=== PATIENT | female | born 1955 | race Caucasian/White ===

== ENCOUNTER 2021-04-21 19:37 | Inpatient (IN) | payer OTHER ==
[~2021-04-21] VITALS: Ht 162.6 cm; Wt 78.4 kg
[2021-04-21] MEDS ORDERED: SODIUM CHLORIDE FLUSH 10ML SYR IVF ONE (20:00)
[2021-04-21] MEDS ORDERED: DEXAMETHASONE 4 MG/ML, 1ML IVPush ONE (20:00)
[2021-04-21] MEDS ORDERED: DEXAMETHASONE 4 MG/ML, 1ML ONE (20:15)
--- NOTE | 2021-04-21 20:22 | NUR ---
BIB [facility] W/ CO OF HYPOXIA. PT DX ON FRIDAY W/ COVID, REPORTS SHE HAD PULSE OX THAT WAS READING LOW 70'S. KILN PLACER, 20 R WRIST STARTED, BREATHING TX GIVEN AND OXYGEN IMPROVED. REPORT RECEIVED FROM DRIVER OPERATOR, [facility] DID NOT GIVE REPORT. PT IN BED, PLACED ON MONITORS (BP, O2, CARDIAC). CXR COMPELTED, LAB BEDSIDE NOW.
--- NOTE | 2021-04-21 20:26 | NUR ---
MEDICATED PER MAR
[2021-04-21] MEDS ORDERED: PLEASE ENTER ALLERGIES MC SCH (20:30)
[2021-04-21] MEDS ORDERED: PLEASE ENTER HEIGHT AND WEIGHT MC SCH (20:30)
[2021-04-21 20:44] LABS: BASOPHILS % (AUTO) 1 % (0-1); EOSINOPHILS % (AUTO) 0 % (1-7); LYMPHOCYTES % (AUTO) 14 % (22-44); MEAN CORPUSCULAR HEMOGLOBIN 29.1 pg (27.0-34.8); MEAN CORPUSCULAR HGB CONC 33.9 g/dL (32.4-35.8); MEAN PLATELET VOLUME 9.2 fL (7.4-10.4); MONOCYTES % (AUTO) 7 % (2-9); NEUTROPHILS % (AUTO) 78 % (42-75); PLATELET COUNT 198 x10^3/uL (130-400); RED BLOOD COUNT 5.04 x10^6/uL (3.82-5.3); RED CELL DISTRIBUTION WIDTH 13.6 % (9.6-15.2)
[2021-04-21 20:56] LABS: ALANINE AMINOTRANSFERASE 79 U/L (12-78); ALBUMIN 2.8 g/dL (3.4-5.0); ANION GAP 7 mmol/L (5-15); CALCIUM 8.9 mg/dL (8.5-10.1); CHLORIDE 100 mmol/L (98-107); CREATININE 0.73 mg/dL (0.55-1.02)
[2021-04-21 20:58] LABS: ALKALINE PHOSPHATASE 50 U/L (45-117); BILIRUBIN,TOTAL 0.6 mg/dL (0.2-1.0); TOTAL PROTEIN 7.6 g/dL (6.4-8.2)
[2021-04-21] MEDS ORDERED: CEFTRIAXONE 1,000 MG in DEXTROSE 5% 50 ML IVPB ONE (21:00)
[2021-04-21] MEDS ORDERED: AZITHROMYCIN 500 MG in SODIUM CHLORIDE 0.9% 250 ML IVPB ONE (21:00)
--- NOTE | 2021-04-21 21:30 | NUR ---
pt resting in [facility], denies any need. updated on poc, medicated per oct. call light w/in reach. [place]
--- NOTE | 2021-04-21 22:07 | NUR ---
Pt reports she is doing ok, and denies any needs. respirations in 40's, and is taking short breaths. encouraged full breaths and possibility of laying prone. abx given per octUrszula putnam. call light w/in reach.
[2021-04-21] MEDS ORDERED: ONDANSETRON 2MG/ML, 2ML IVPush PRN (22:30)
[2021-04-21] MEDS ORDERED: ENOXAPARIN 40 MG/0.4 ML SQ SCH (22:30)
[2021-04-21] MEDS ORDERED: POLYETHYLENE GLYCOL 17 GM PACKET PO PRN (22:30)
[2021-04-21] MEDS ORDERED: LABETALOL 5MG/ML, 20ML IVPush PRN (22:30)
[2021-04-21] MEDS ORDERED: PHARMACY MAY ADJ FOR RENAL FX MC PRN (22:30)
[2021-04-21] MEDS ORDERED: ENOXAPARIN 40 MG/0.4 ML ONE (23:07)
[2021-04-21] MEDS ORDERED: FAMOTIDINE 20 MG TABLET ONE (23:07)
[2021-04-21] MEDS ORDERED: ASCORBIC ACID 500 MG TABLET ONE (23:07)
[2021-04-21] MEDS ORDERED: MELATONIN 5 MG TABLET ONE (23:08)
[2021-04-21] MEDS: MELATONIN 5 MG TABLET PO SCH (23:13)
[2021-04-21] MEDS: ASCORBIC ACID 500 MG TABLET PO SCH (23:13)
[2021-04-21] MEDS: FAMOTIDINE 20 MG TABLET PO SCH (23:14)
--- NOTE | 2021-04-21 23:14 | NUR ---
pt medicated per oct. denies needs, nadn. call light w/in reach
--- NOTE | 2021-04-22 00:09 | NUR ---
Pt resting on gurney, laying on her side. NADN, call light w/in reach
--- NOTE | 2021-04-22 00:13 | NUR ---
Spoke with RT d/t an optiflow order being put in by ED doctor. Let her know that she can be tachypneic in 40's and that I bumped her up to 5L but has always been in 90's. [facility] has seen pt and has not put an order for optiflow. RT will assess pt when available.
--- NOTE | 2021-04-22 00:46 | NUR ---
RT assessed pt and at this time is not placing pt on optiflow which I agree with.
--- NOTE | 2021-04-22 01:12 | NUR ---
SBAR give to Barb, answered questions. Pt is ready for transfer
[2021-04-22] MEDS ORDERED: CHOLESTROL MED (01:43)
[2021-04-22] MEDS ORDERED: blood pressure med (01:43)
[2021-04-22 01:44] VITALS: BP 114/70
[2021-04-22] MEDS ORDERED: ENOXAPARIN 30 MG/0.3 ML SQ SCH (02:00)
[2021-04-22 03:52] VITALS: BP 99/60
[2021-04-22 06:57] LABS: BASOPHILS % (AUTO) 0 % (0-1); EOSINOPHILS % (AUTO) 0 % (1-7); LYMPHOCYTES % (AUTO) 16 % (22-44); MEAN CORPUSCULAR HEMOGLOBIN 29.3 pg (27.0-34.8); MEAN PLATELET VOLUME 9.2 fL (7.4-10.4); MONOCYTES % (AUTO) 8 % (2-9); NEUTROPHILS % (AUTO) 76 % (42-75); PLATELET COUNT 181 x10^3/uL (130-400); RED BLOOD COUNT 4.55 x10^6/uL (3.82-5.3); RED CELL DISTRIBUTION WIDTH 13.4 % (9.6-15.2)
[2021-04-22 07:04] LABS: ANION GAP 5 mmol/L (5-15); CHLORIDE 104 mmol/L (98-107); CREATININE 0.62 mg/dL (0.55-1.02)
[2021-04-22 08:05] VITALS: BP 104/95
[2021-04-22] MEDS: DEXAMETHASONE 4 MG/ML, 1ML IVPush SCH (08:07)
[2021-04-22] MEDS: ZINC SULFATE 220 MG CAPSULE PO SCH (08:07)
[2021-04-22] MEDS: ASCORBIC ACID 500 MG TABLET PO SCH ×2 (08:07→21:23)
[2021-04-22] MEDS: FAMOTIDINE 20 MG TABLET PO SCH (08:07)
[2021-04-22] MEDS: FUROSEMIDE 40 MG TABLET PO SCH (10:49)
[2021-04-22 13:01] VITALS: BP 108/83
[2021-04-22 13:30] VITALS: BP 166/76
[2021-04-22] MEDS ORDERED: FAMOTIDINE 20 MG TABLET PO SCH (21:00)
[2021-04-22 21:13] VITALS: BP 99/62
[2021-04-22] MEDS: ENOXAPARIN 40 MG/0.4 ML SQ SCH (21:23)
[2021-04-22] MEDS: MELATONIN 5 MG TABLET PO SCH (21:23)
[2021-04-22] MEDS: GUAIFENESIN/DM 200-20MG, 10ML UDC PO PRN (22:59)
[2021-04-22] MEDS: BENZONATATE 100 MG CAPSULE PO SCH (23:00)
[2021-04-22] MEDS ORDERED: GUAIFENESIN/DM 200-20MG, 10ML UDC PO PRN (23:00)
[2021-04-23 01:08] VITALS: BP 104/60
[2021-04-23 06:00] VITALS: BP 113/74
[2021-04-23 06:07] LABS: CHLORIDE 107 mmol/L (98-107)
[2021-04-23 06:35] LABS: ALANINE AMINOTRANSFERASE 87 U/L (12-78); ALBUMIN 2.1 g/dL (3.4-5.0); ALKALINE PHOSPHATASE 40 U/L (45-117); ANION GAP 6 mmol/L (5-15); BILIRUBIN,TOTAL 0.4 mg/dL (0.2-1.0); CALCIUM 8.8 mg/dL (8.5-10.1); CREATININE 0.55 mg/dL (0.55-1.02); TOTAL PROTEIN 6.3 g/dL (6.4-8.2)
[2021-04-23] MEDS ORDERED: CEFTRIAXONE 1,000 MG IM SCH (10:00)
[2021-04-23] MEDS ORDERED: REMDESIVIR 200 MG in SODIUM CHLORIDE 0.9% 100 ML IVPB ONE ×2 (10:00→19:15)
[2021-04-23] MEDS: ASCORBIC ACID 500 MG TABLET PO SCH ×2 (10:27→20:35)
[2021-04-23] MEDS: DEXAMETHASONE 4 MG/ML, 1ML IVPush SCH (10:27)
[2021-04-23] MEDS: BENZONATATE 100 MG CAPSULE PO SCH ×3 (10:28→20:34)
[2021-04-23] MEDS: AZITHROMYCIN 500 MG TABLET PO SCH (10:28)
[2021-04-23] MEDS: ZINC SULFATE 220 MG CAPSULE PO SCH (10:28)
[2021-04-23] MEDS: FUROSEMIDE 40 MG TABLET PO SCH (10:29)
[2021-04-23 14:20] VITALS: BP 121/65
[2021-04-23] MEDS: CEFTRIAXONE 1,000 MG in DEXTROSE 5% 50 ML IVPB SCH (18:19)
[2021-04-23] MEDS: GUAIFENESIN/DM 200-20MG, 10ML UDC PO PRN (19:26)
[2021-04-23 19:42] VITALS: BP 130/62
[2021-04-23] MEDS: ENOXAPARIN 40 MG/0.4 ML SQ SCH (20:34)
[2021-04-23] MEDS: MELATONIN 5 MG TABLET PO SCH (20:35)
[2021-04-23] MEDS: FAMOTIDINE 20 MG TABLET PO SCH (20:35)
[2021-04-24 02:33] VITALS: BP 95/55
[2021-04-24 07:07] LABS: BASOPHILS % (AUTO) 0 % (0-1); EOSINOPHILS % (AUTO) 0 % (1-7); LYMPHOCYTES % (AUTO) 11 % (22-44); MEAN CORPUSCULAR HEMOGLOBIN 28.4 pg (27.0-34.8); MEAN CORPUSCULAR HGB CONC 33.3 g/dL (32.4-35.8); MEAN PLATELET VOLUME 9.2 fL (7.4-10.4); MONOCYTES % (AUTO) 9 % (2-9); NEUTROPHILS % (AUTO) 81 % (42-75); PLATELET COUNT 290 x10^3/uL (130-400); RED BLOOD COUNT 4.43 x10^6/uL (3.82-5.3); RED CELL DISTRIBUTION WIDTH 13.2 % (9.6-15.2)
[2021-04-24 07:23] LABS: CHLORIDE 106 mmol/L (98-107)
[2021-04-24 07:30] LABS: ALANINE AMINOTRANSFERASE 82 U/L (12-78); ALBUMIN 2.4 g/dL (3.4-5.0); ALKALINE PHOSPHATASE 43 U/L (45-117); ANION GAP 7 mmol/L (5-15); BILIRUBIN,TOTAL 0.5 mg/dL (0.2-1.0); CALCIUM 9.2 mg/dL (8.5-10.1); CREATININE 0.49 mg/dL (0.55-1.02); TOTAL PROTEIN 6.4 g/dL (6.4-8.2)
[2021-04-24 08:00] VITALS: BP 111/74
[2021-04-24] MEDS: FUROSEMIDE 40 MG TABLET PO SCH (10:27)
[2021-04-24] MEDS: ZINC SULFATE 220 MG CAPSULE PO SCH (10:27)
[2021-04-24] MEDS: DEXAMETHASONE 4 MG/ML, 1ML IVPush SCH (10:27)
[2021-04-24] MEDS: BENZONATATE 100 MG CAPSULE PO SCH ×3 (10:27→20:23)
[2021-04-24] MEDS: AZITHROMYCIN 500 MG TABLET PO SCH (10:27)
[2021-04-24] MEDS: ASCORBIC ACID 500 MG TABLET PO SCH ×2 (10:27→20:23)
[2021-04-24] MEDS: FAMOTIDINE 20 MG TABLET PO SCH ×2 (10:28→20:23)
[2021-04-24 13:30] VITALS: BP 124/72
[2021-04-24] MEDS: CEFTRIAXONE 1,000 MG in DEXTROSE 5% 50 ML IVPB SCH (16:20)
[2021-04-24 20:03] VITALS: BP 111/71
[2021-04-24] MEDS: MELATONIN 5 MG TABLET PO SCH (20:23)
[2021-04-24] MEDS: ENOXAPARIN 40 MG/0.4 ML SQ SCH (20:24)
[2021-04-24] MEDS: REMDESIVIR 100 MG in SODIUM CHLORIDE 0.9% 100 ML IVPB SCH (20:46)
[2021-04-24] MEDS ORDERED: ACETAMINOPHEN 325 MG TABLET ONE (21:02)
[2021-04-24 21:50] VITALS: BP 126/85
[2021-04-24] MEDS: ACETAMINOPHEN 325 MG TABLET PO PRN (22:50)
[2021-04-25 00:33] VITALS: BP 105/66
[2021-04-25 06:14] LABS: BASOPHILS % (AUTO) 0 % (0-1); EOSINOPHILS % (AUTO) 0 % (1-7); LYMPHOCYTES % (AUTO) 14 % (22-44); MEAN CORPUSCULAR HEMOGLOBIN 28.7 pg (27.0-34.8); MEAN CORPUSCULAR HGB CONC 33.4 g/dL (32.4-35.8); MEAN PLATELET VOLUME 8.9 fL (7.4-10.4); MONOCYTES % (AUTO) 7 % (2-9); NEUTROPHILS % (AUTO) 79 % (42-75); PLATELET COUNT 339 x10^3/uL (130-400); RED BLOOD COUNT 4.39 x10^6/uL (3.82-5.3); RED CELL DISTRIBUTION WIDTH 13.3 % (9.6-15.2)
[2021-04-25 06:24] LABS: ALBUMIN 2.6 g/dL (3.4-5.0); ANION GAP 10 mmol/L (5-15); CALCIUM 9.2 mg/dL (8.5-10.1); CHLORIDE 106 mmol/L (98-107)
[2021-04-25 06:29] LABS: ALANINE AMINOTRANSFERASE 77 U/L (12-78); ALKALINE PHOSPHATASE 46 U/L (45-117); BILIRUBIN,TOTAL 0.5 mg/dL (0.2-1.0); CREATININE 0.54 mg/dL (0.55-1.02); TOTAL PROTEIN 6.6 g/dL (6.4-8.2)
[2021-04-25 10:00] VITALS: BP 107/63
[2021-04-25 10:08] VITALS: BP 107/63
[2021-04-25] MEDS: ASCORBIC ACID 500 MG TABLET PO SCH ×2 (10:34→20:31)
[2021-04-25] MEDS: FAMOTIDINE 20 MG TABLET PO SCH ×2 (10:34→20:28)
[2021-04-25] MEDS: AZITHROMYCIN 500 MG TABLET PO SCH (10:34)
[2021-04-25] MEDS: ZINC SULFATE 220 MG CAPSULE PO SCH (10:34)
[2021-04-25] MEDS: BENZONATATE 100 MG CAPSULE PO SCH ×3 (10:34→20:28)
[2021-04-25] MEDS: FUROSEMIDE 40 MG TABLET PO SCH (10:34)
[2021-04-25] MEDS: DEXAMETHASONE 4 MG/ML, 1ML IVPush SCH (10:35)
[2021-04-25 12:25] VITALS: BP 131/77
[2021-04-25] MEDS: CEFTRIAXONE 1,000 MG in DEXTROSE 5% 50 ML IVPB SCH (16:14)
[2021-04-25] MEDS: GUAIFENESIN/DM 200-20MG, 10ML UDC PO PRN (16:27)
[2021-04-25] MEDS: ACETAMINOPHEN 325 MG TABLET PO PRN (16:27)
[2021-04-25 20:20] VITALS: BP 124/76
[2021-04-25] MEDS: MELATONIN 5 MG TABLET PO SCH (20:28)
[2021-04-25] MEDS: ENOXAPARIN 40 MG/0.4 ML SQ SCH (20:32)
[2021-04-25] MEDS: REMDESIVIR 100 MG in SODIUM CHLORIDE 0.9% 100 ML IVPB SCH (20:50)
[2021-04-26 02:04] VITALS: BP 120/80
[2021-04-26 06:47] LABS: ALANINE AMINOTRANSFERASE 63 U/L (12-78); ANION GAP 6 mmol/L (5-15); CALCIUM 8.6 mg/dL (8.5-10.1); CHLORIDE 106 mmol/L (98-107)
[2021-04-26 06:51] LABS: ALBUMIN 2.2 g/dL (3.4-5.0); ALKALINE PHOSPHATASE 43 U/L (45-117); BILIRUBIN,TOTAL 0.4 mg/dL (0.2-1.0); CREATININE 0.56 mg/dL (0.55-1.02); TOTAL PROTEIN 6.3 g/dL (6.4-8.2)
[2021-04-26 07:10] LABS: BASOPHILS % (AUTO) 0 % (0-1); EOSINOPHILS % (AUTO) 0 % (1-7); LYMPHOCYTES % (AUTO) 12 % (22-44); MEAN CORPUSCULAR HEMOGLOBIN 28.8 pg (27.0-34.8); MEAN CORPUSCULAR HGB CONC 33.6 g/dL (32.4-35.8); MEAN PLATELET VOLUME 8.9 fL (7.4-10.4); MONOCYTES % (AUTO) 7 % (2-9); NEUTROPHILS % (AUTO) 81 % (42-75); PLATELET COUNT 357 x10^3/uL (130-400); RED BLOOD COUNT 4.33 x10^6/uL (3.82-5.3); RED CELL DISTRIBUTION WIDTH 13.4 % (9.6-15.2)
[2021-04-26] MEDS: FAMOTIDINE 20 MG TABLET PO SCH ×2 (08:43→20:15)
[2021-04-26] MEDS: ASCORBIC ACID 500 MG TABLET PO SCH ×2 (08:43→20:15)
[2021-04-26] MEDS: BENZONATATE 100 MG CAPSULE PO SCH ×3 (08:43→20:15)
[2021-04-26] MEDS: ZINC SULFATE 220 MG CAPSULE PO SCH (08:43)
[2021-04-26] MEDS: AZITHROMYCIN 500 MG TABLET PO SCH (08:44)
[2021-04-26] MEDS: FUROSEMIDE 40 MG TABLET PO SCH (08:44)
[2021-04-26] MEDS: DEXAMETHASONE 4 MG/ML, 1ML IVPush SCH (08:44)
[2021-04-26 08:52] VITALS: BP 111/72
[2021-04-26] MEDS: FLUTICASONE/VILANTEROL 100-25MCG/INH INH SCH (12:01)
[2021-04-26 13:57] VITALS: BP 117/64
[2021-04-26] MEDS: CEFTRIAXONE 1,000 MG in DEXTROSE 5% 50 ML IVPB SCH (14:05)
[2021-04-26] MEDS: ACETAMINOPHEN 325 MG TABLET PO PRN (15:29)
[2021-04-26 19:51] VITALS: BP 118/73
[2021-04-26] MEDS: ENOXAPARIN 40 MG/0.4 ML SQ SCH (20:15)
[2021-04-26] MEDS: MELATONIN 5 MG TABLET PO SCH (20:15)
[2021-04-26] MEDS: REMDESIVIR 100 MG in SODIUM CHLORIDE 0.9% 100 ML IVPB SCH (21:23)
[2021-04-27 01:06] VITALS: BP 124/72
[2021-04-27 07:10] LABS: ALANINE AMINOTRANSFERASE 60 U/L (12-78); ALBUMIN 2.6 g/dL (3.4-5.0); ANION GAP 4 mmol/L (5-15); CALCIUM 8.8 mg/dL (8.5-10.1); CHLORIDE 101 mmol/L (98-107); CREATININE 0.62 mg/dL (0.55-1.02)
[2021-04-27 07:13] LABS: ALKALINE PHOSPHATASE 48 U/L (45-117); BILIRUBIN,TOTAL 0.6 mg/dL (0.2-1.0); TOTAL PROTEIN 6.9 g/dL (6.4-8.2)
[2021-04-27 07:32] VITALS: BP 112/68
[2021-04-27] MEDS: FLUTICASONE/VILANTEROL 100-25MCG/INH INH SCH (09:13)
[2021-04-27] MEDS: FUROSEMIDE 40 MG TABLET PO SCH (09:14)
[2021-04-27] MEDS: ZINC SULFATE 220 MG CAPSULE PO SCH (09:14)
[2021-04-27] MEDS: FAMOTIDINE 20 MG TABLET PO SCH ×2 (09:14→22:21)
[2021-04-27] MEDS: ASCORBIC ACID 500 MG TABLET PO SCH ×2 (09:14→22:20)
[2021-04-27] MEDS: DEXAMETHASONE 4 MG/ML, 1ML IVPush SCH (09:14)
[2021-04-27] MEDS: AZITHROMYCIN 500 MG TABLET PO SCH (09:14)
[2021-04-27] MEDS: BENZONATATE 100 MG CAPSULE PO SCH ×3 (09:14→22:20)
[2021-04-27] MEDS: ACETAMINOPHEN 325 MG TABLET PO PRN ×3 (09:29→22:20)
[2021-04-27 12:32] VITALS: BP 121/70
[2021-04-27] MEDS: CEFTRIAXONE 1,000 MG in DEXTROSE 5% 50 ML IVPB SCH (15:20)
[2021-04-27 15:28] VITALS: BP 122/75
[2021-04-27 17:42] VITALS: BP 125/76
[2021-04-27 20:10] VITALS: BP 124/70
[2021-04-27] MEDS: MELATONIN 5 MG TABLET PO SCH (22:21)
[2021-04-27] MEDS: REMDESIVIR 100 MG in SODIUM CHLORIDE 0.9% 100 ML IVPB SCH (22:21)
[2021-04-27] MEDS: ENOXAPARIN 40 MG/0.4 ML SQ SCH (22:21)
[2021-04-28 01:12] VITALS: BP 113/69
[2021-04-28 07:27] LABS: ANION GAP 4 mmol/L (5-15); CALCIUM 8.9 mg/dL (8.5-10.1); CHLORIDE 104 mmol/L (98-107)
[2021-04-28 07:29] LABS: CREATININE 0.49 mg/dL (0.55-1.02)
[2021-04-28 10:05] VITALS: BP 104/66
[2021-04-28] MEDS: FLUTICASONE/VILANTEROL 100-25MCG/INH INH SCH (10:09)
[2021-04-28] MEDS: GUAIFENESIN/DM 200-20MG, 10ML UDC PO PRN (10:29)
[2021-04-28] MEDS: FAMOTIDINE 20 MG TABLET PO SCH ×2 (10:30→21:38)
[2021-04-28] MEDS: ZINC SULFATE 220 MG CAPSULE PO SCH (10:30)
[2021-04-28] MEDS: ACETAMINOPHEN 325 MG TABLET PO PRN ×3 (10:30→21:38)
[2021-04-28] MEDS: ASCORBIC ACID 500 MG TABLET PO SCH ×2 (10:30→21:38)
[2021-04-28] MEDS: DEXAMETHASONE 4 MG/ML, 1ML IVPush SCH (10:30)
[2021-04-28] MEDS: FUROSEMIDE 40 MG TABLET PO SCH (10:30)
[2021-04-28] MEDS: BENZONATATE 100 MG CAPSULE PO SCH ×3 (10:30→21:38)
[2021-04-28] MEDS: AZITHROMYCIN 500 MG TABLET PO SCH (10:30)
[2021-04-28 14:59] VITALS: BP 119/81
[2021-04-28] MEDS: CEFTRIAXONE 1,000 MG in DEXTROSE 5% 50 ML IVPB SCH (16:44)
[2021-04-28] MEDS: MELATONIN 5 MG TABLET PO SCH (21:38)
[2021-04-28] MEDS: THIAMINE 100MG TABLET PO SCH (21:38)
[2021-04-28 21:39] VITALS: BP 128/66
[2021-04-28] MEDS: ENOXAPARIN 40 MG/0.4 ML SQ SCH (21:39)
[2021-04-29 00:20] VITALS: BP 133/79
[2021-04-29 05:28] LABS: BASOPHILS % (AUTO) 0 % (0-1); EOSINOPHILS % (AUTO) 0 % (1-7); LYMPHOCYTES % (AUTO) 7 % (22-44); MEAN CORPUSCULAR HEMOGLOBIN 29.1 pg (27.0-34.8); MEAN CORPUSCULAR HGB CONC 33.8 g/dL (32.4-35.8); MEAN PLATELET VOLUME 8.6 fL (7.4-10.4); MONOCYTES % (AUTO) 6 % (2-9); NEUTROPHILS % (AUTO) 87 % (42-75); PLATELET COUNT 462 x10^3/uL (130-400); RED BLOOD COUNT 4.54 x10^6/uL (3.82-5.3); RED CELL DISTRIBUTION WIDTH 13.7 % (9.6-15.2)
[2021-04-29 05:34] LABS: D-DIMER 0.47 ug/mlFEU (0.00-0.52)
[2021-04-29 05:39] LABS: ANION GAP 6 mmol/L (5-15); CALCIUM 9.5 mg/dL (8.5-10.1); CHLORIDE 102 mmol/L (98-107)
[2021-04-29] MEDS: BENZONATATE 100 MG CAPSULE PO SCH ×3 (08:10→20:47)
[2021-04-29] MEDS: AZITHROMYCIN 500 MG TABLET PO SCH (08:10)
[2021-04-29] MEDS: THIAMINE 100MG TABLET PO SCH ×2 (08:10→20:47)
[2021-04-29] MEDS: ASCORBIC ACID 500 MG TABLET PO SCH ×2 (08:10→20:47)
[2021-04-29] MEDS: FLUTICASONE/VILANTEROL 100-25MCG/INH INH SCH (08:10)
[2021-04-29] MEDS: ZINC SULFATE 220 MG CAPSULE PO SCH (08:10)
[2021-04-29] MEDS: DEXAMETHASONE 4 MG/ML, 1ML IVPush SCH (08:10)
[2021-04-29] MEDS: FUROSEMIDE 40 MG TABLET PO SCH (08:11)
[2021-04-29] MEDS: FAMOTIDINE 20 MG TABLET PO SCH ×2 (08:11→20:47)
[2021-04-29] MEDS: CHOLECALCIFEROL 5,000u TAB PO SCH (08:11)
[2021-04-29 08:18] VITALS: BP 111/70
[2021-04-29 14:00] VITALS: BP 111/74
[2021-04-29] MEDS: CEFTRIAXONE 1,000 MG in DEXTROSE 5% 50 ML IVPB SCH (15:24)
[2021-04-29 19:35] VITALS: BP 119/78
[2021-04-29] MEDS: MELATONIN 5 MG TABLET PO SCH (20:48)
[2021-04-29] MEDS: ENOXAPARIN 40 MG/0.4 ML SQ SCH (20:48)
[2021-04-30 01:53] VITALS: BP 109/68
[2021-04-30] MEDS: FLUTICASONE/VILANTEROL 100-25MCG/INH INH SCH (08:45)
[2021-04-30] MEDS: ASCORBIC ACID 500 MG TABLET PO SCH ×2 (08:45→21:52)
[2021-04-30] MEDS: THIAMINE 100MG TABLET PO SCH ×2 (08:46→21:53)
[2021-04-30] MEDS: FAMOTIDINE 20 MG TABLET PO SCH (08:46)
[2021-04-30] MEDS: AZITHROMYCIN 500 MG TABLET PO SCH (08:46)
[2021-04-30] MEDS: ZINC SULFATE 220 MG CAPSULE PO SCH (08:46)
[2021-04-30] MEDS: CHOLECALCIFEROL 5,000u TAB PO SCH (08:46)
[2021-04-30] MEDS: FUROSEMIDE 40 MG TABLET PO SCH (08:46)
[2021-04-30] MEDS: DEXAMETHASONE 4 MG/ML, 1ML IVPush SCH (08:46)
[2021-04-30] MEDS: BENZONATATE 100 MG CAPSULE PO SCH ×3 (08:46→21:52)
[2021-04-30 08:53] VITALS: BP 98/62
[2021-04-30] MEDS: PANTOPRAZOLE 40MG TABLET PO SCH ×2 (09:48→21:52)
[2021-04-30] MEDS: CALCIUM CARBONATE 500 MG TAB.CHEW PO SCH (09:51)
[2021-04-30] MEDS: CEFTRIAXONE 1,000 MG in DEXTROSE 5% 50 ML IVPB SCH (14:50)
[2021-04-30 15:05] VITALS: BP 122/67
[2021-04-30] MEDS: ENOXAPARIN 40 MG/0.4 ML SQ SCH (21:52)
[2021-04-30] MEDS: MELATONIN 5 MG TABLET PO SCH (21:52)
[2021-04-30 21:56] VITALS: BP 121/76
[2021-05-01 03:59] VITALS: BP 111/66
[2021-05-01 08:13] VITALS: BP 113/59
[2021-05-01] MEDS: THIAMINE 100MG TABLET PO SCH ×2 (09:00→21:00)
[2021-05-01] MEDS: CHOLECALCIFEROL 5,000u TAB PO SCH (11:00)
[2021-05-01] MEDS: BENZONATATE 100 MG CAPSULE PO SCH ×3 (11:00→21:04)
[2021-05-01] MEDS: AZITHROMYCIN 500 MG TABLET PO SCH (11:01)
[2021-05-01] MEDS: ASCORBIC ACID 500 MG TABLET PO SCH ×2 (11:01→21:05)
[2021-05-01] MEDS: CALCIUM CARBONATE 500 MG TAB.CHEW PO SCH (11:01)
[2021-05-01] MEDS: ZINC SULFATE 220 MG CAPSULE PO SCH (11:01)
[2021-05-01] MEDS: PANTOPRAZOLE 40MG TABLET PO SCH ×2 (11:01→21:05)
[2021-05-01] MEDS: FLUTICASONE/VILANTEROL 100-25MCG/INH INH SCH (11:02)
[2021-05-01] MEDS: FUROSEMIDE 40 MG/4 ML IV SCH (11:02)
[2021-05-01] MEDS: DEXAMETHASONE 4 MG/ML, 1ML IVPush SCH (11:02)
[2021-05-01 12:38] VITALS: BP 118/66
[2021-05-01] MEDS ORDERED: DEXA6TAB6 PO (13:45)
[2021-05-01] MEDS ORDERED: ASCO500T9 PO (13:45)
[2021-05-01] MEDS ORDERED: FLUT1AER INH (13:45)
[2021-05-01] MEDS ORDERED: DOXY100T PO (13:45)
[2021-05-01] MEDS ORDERED: MELA5TAB14 PO (13:45)
[2021-05-01] MEDS ORDERED: AMOX1TAB64 PO (13:45)
[2021-05-01] MEDS ORDERED: CHOL500045 PO (13:45)
[2021-05-01] MEDS ORDERED: THIA100T67 PO (13:45)
[2021-05-01] MEDS ORDERED: PANT40TA6 PO (13:45)
[2021-05-01] MEDS ORDERED: ACET325T26 PO (13:45)
[2021-05-01] MEDS: CEFTRIAXONE 1,000 MG in DEXTROSE 5% 50 ML IVPB SCH (15:58)
[2021-05-01 20:00] VITALS: BP 128/66
[2021-05-01] MEDS: MELATONIN 5 MG TABLET PO SCH (21:00)
[2021-05-01] MEDS: GUAIFENESIN/COD200MG-20MG/10ML LIQUID PO SCH (21:05)
[2021-05-01] MEDS: ENOXAPARIN 40 MG/0.4 ML SQ SCH (21:06)
[2021-05-02 01:29] VITALS: BP 145/77
[2021-05-02] MEDS: GUAIFENESIN/COD200MG-20MG/10ML LIQUID PO SCH ×2 (06:37→09:59)
[2021-05-02 07:21] LABS: BASOPHILS % (AUTO) 0 % (0-1); EOSINOPHILS % (AUTO) 0 % (1-7); LYMPHOCYTES % (AUTO) 9 % (22-44); MEAN CORPUSCULAR HEMOGLOBIN 28.5 pg (27.0-34.8); MEAN CORPUSCULAR HGB CONC 32.8 g/dL (32.4-35.8); MONOCYTES % (AUTO) 9 % (2-9); NEUTROPHILS % (AUTO) 82 % (42-75); PLATELET COUNT 413 x10^3/uL (130-400); RED BLOOD COUNT 4.65 x10^6/uL (3.82-5.3)
[2021-05-02 07:31] LABS: CHLORIDE 103 mmol/L (98-107)
[2021-05-02 07:36] LABS: CALCIUM 8.8 mg/dL (8.5-10.1); CREATININE 0.61 mg/dL (0.55-1.02)
[2021-05-02 07:40] LABS: ANION GAP 7 mmol/L (5-15)
[2021-05-02] MEDS: THIAMINE 100MG TABLET PO SCH (09:00)
[2021-05-02 09:40] VITALS: BP 103/69
[2021-05-02] MEDS: FLUTICASONE/VILANTEROL 100-25MCG/INH INH SCH (09:58)
[2021-05-02] MEDS: CALCIUM CARBONATE 500 MG TAB.CHEW PO SCH (09:59)
[2021-05-02] MEDS: CHOLECALCIFEROL 5,000u TAB PO SCH (09:59)
[2021-05-02] MEDS: ZINC SULFATE 220 MG CAPSULE PO SCH (09:59)
[2021-05-02] MEDS: AZITHROMYCIN 500 MG TABLET PO SCH (09:59)
[2021-05-02] MEDS: FUROSEMIDE 40 MG/4 ML IV SCH (09:59)
[2021-05-02] MEDS: BENZONATATE 100 MG CAPSULE PO SCH (09:59)
[2021-05-02] MEDS: DEXAMETHASONE 4 MG/ML, 1ML IVPush SCH (09:59)
[2021-05-02] MEDS: ASCORBIC ACID 500 MG TABLET PO SCH (10:00)
[2021-05-02] MEDS: PANTOPRAZOLE 40MG TABLET PO SCH (10:00)
== END 2021-05-02 11:51 | disposition home or self-care (01) | DRG 177 ==
LOC: ED 22:00 → EDIP 22:25 → ED 22:47 → 4EST 04-22 01:35
PROVIDERS: ADMIT Internal Medicine; ATTEND Internal Medicine
PROC: XW033E5 Introduction of Remdesivir Anti-infective into Peripheral Vein, Percutaneous Approach, New Technology Group 5 (ICD-10-PCS; principal; 2021-04-23)
DX: U07.1 COVID-19 (principal); J96.01 Acute respiratory failure with hypoxia; J12.82 Pneumonia due to coronavirus disease 2019; E87.1 Hypo-osmolality and hyponatremia; E66.01 Morbid (severe) obesity due to excess calories; E78.5 Hyperlipidemia, unspecified; I10 Essential (primary) hypertension; R74.01 Elevation of levels of liver transaminase levels; Z68.29 Body mass index [BMI] 29.0-29.9, adult
CPT/HCPCS: 36415; 36600; 71045; 80048; 80053; 82728; 82803; 83615; 83735; 84145; 85025; 85379; 85384; 86140; 87040; 93005; 96374; 96375; 99291; G0378; J0456; J0696; J1100; J1650; J1940; J7050